=== PATIENT | female | born 2000 | race Caucasian/White ===

== ENCOUNTER 2023-10-08 12:55 | Inpatient (IN) | payer OTHER, SELFPAY ==
[2023-10-08] VITALS (18 sets, daily range): BP systolic 88–124; BP diastolic 49–87; PULSE 58–90; RESP 14–20; TEMP 36.1–36.9; O2SAT 66–100; BMI 29.6
[2023-10-08] MEDS: Lactated Ringers 1,000 ML 999 ML IV (13:12)
--- NOTE | 2023-10-08 13:16 | PCM.HP.OB ---
HPI - General General Date of Admission: 10/08/23 Date of Service: 10/08/23 Chief Complaint: Bleeding and contractions. HPI Narrative YULISSA FABIAN, is a 23 M who presents for contractions all night. This am had a gush of fluid and blood. Presents with significant vaginal bleeding. Cervix 1 cm. Planning primary due to hx of 3 degree laceration. Suspect abruption Maternal Data Information Final SHAY: 10/24/23 Gestational age: 37+5 PFSH PFSH Allergy/AdvReac Type Severity Reaction Status Date / Time amoxicillin [From Augmentin] Allergy Mild Diarrhea Verified 10/08/23 13:26 clavulanic acid Allergy Mild Diarrhea Verified 10/08/23 13:26 [From Augmentin] History 2 Elective abortions Hx Para 1 Spontaneous abortions Hx # Term Pregnancies Ectopic pregnancies Hx # Pregnancies Multiple births # of living children ROS Constitutional Constitutional: Denies fatigue, fever(s) or malaise Eyes Eyes: Denies change in vision ENT HEENT: Denies dizziness or headache(s) Cardiovascular Cardiovascular: Denies chest pain, dyspnea or lightheadedness Respiratory/Chest Respiratory/Chest: Denies cough or dyspnea Gastrointestinal Gastrointestinal: Denies change in bowel habits Genitourinary Genitourinary: Denies burning urination or genital lesions Integumentary Integumentary: Denies rash Neurologic Neurologic: Denies confusion, dizziness, headache(s), numbness or weakness Physical Exam Const alert and oriented x3 General Appearance: cooperative and comfortable HEENT normocephalic Head and Scalp: atraumatic Eyes PERRL and EOMs intact bilaterally Neck full ROM Resp normal respiratory effort GI Inspection: gravid Extremity normal to inspection General Extremity: Negative for edema Skin no rashes or lesions noted Neuro moves all extremities and no focal motor deficits Psych mental status grossly normal Labs Labs Labs: Blood Type Pending Antibody Screen Pending Hct 44.7 % (37-47) Hgb 14.2 g/dL (12.0-15.0) Syphilis Total Ab Pending Assessment & Plan (1) with third trimester bleeding, antepartum: PLAN: Suspect placental abruption (2) 37 or more weeks gestation of :
[2023-10-08] MEDS: Acetaminophen 500 MG Tablet 1000 MG PO ×2 (13:20→19:14)
[2023-10-08] MEDS: Sodium Citrate/Citric Acid 30 ML UDC PO (13:20)
[2023-10-08] MEDS: Cefazolin 2 GM in 0.9% Normal Saline (100mL Bag) 100 ML IV (13:28)
[2023-10-08 13:31] LABS: Absolute Lymphocyte Count 1.12 X10^3/uL (0.83-4.51); Absolute Neutrophil Count 5.2 X10^3/uL (2.0-7.7); Basophil# 0.02 X10^3/uL; Basophil% 0.3 % (0-1); Eosinophil# 0.03 X10^3/uL; Eosinophils% 0.4 % (0-5); Hematocrit 44.7 % (37-47); Hemoglobin 14.2 g/dL (12.0-15.0); Lymphocyte # 1.12 X10^3/ul (0.83-4.51); Lymphocyte % 16.5 % (19-41); Mean Corp Hgb Conc 31.8 g/dL (32-36); Mean Corpuscular Hgb 29.6 pg (27.0-32.0); Mean Corpuscular Volume 93.3 fL (81-99); Mean Platelet Vol. 10.9 fl (6.2-12.0); Monocyte# 0.42 X10^3/uL; Monocyte% 6.2 % (0-10); NRBC Flagged by Analyzer 0 % (0-5); Neutrophil # 5.15 X10^3/uL (2.7-7.7); Platelet Count 187 K/mm3 (150-450); RBC Distribution Width CV 13.2 % (11.6-14.6); RBC Distribution Width SD 44.9 fl (35.1-43.9); Red Blood Count 4.79 M/mm3 (4.2-5.4); White Blood Count 6.8 K/mm3 (4.4-11.0)
[2023-10-08] MEDS: Ondansetron 4 MG/2 ML Vial IV (13:44)
--- NOTE | 2023-10-08 13:50 | PLAC_PTH ---
PATIENT: YULISSA FABIAN LOC: [facility] U#:[id number] AGE/SX: 23/F ROOM: WP007 RE10/08/[address]: Dr. Mariah Daily MD : 2000 BED: 1 DIS: 10/10/2023 SPEC #: [id number] RECD: 10/08/23 15:27 STATUS: SHANNA REQ #: [id number] ANDER: 10/08/23 13:[address]: Anju Euceda DEPT: SURGICAL PATHOLOGY RECD BY: Sherlyn Jaramillo ENTERED: 10/09/23 07:55 SP TYPE: PLACENTA OTHR DR: Dr. Mariah Daily MD No Primary Care Phys Tissues: A - Placenta, NOS B - Fallopian tube Procedures: Surgery Specimen Level II Surgery Specimen Level V Comments: @ Ordering doctor for SUII edited from to @ by ELIAZAR at 10/13/23 1525 @ Ordering doctor for SUV edited from to @ by ELIAZAR at 10/13/23 1525 @ Submitting doctor edited from to @ by ELIAZAR at 10/13/23 1525 HEADER OPERATION: section and tubal ligation PRE-OP DIAGNOSIS: Suspected abruption and sterilization TISSUE SUBMITTED: A. Placenta, B. Fallopian tubes (left tube has suture) MICROSCOPIC DIAGNOSIS A. Placenta: Placental disc - third trimester placenta (475 gm). Membranes - no pathologic diagnosis. Umbilical cord - three blood vessels and no pathologic diagnosis. B. Bilateral fallopian tubes, salpingectomy: Bilateral fallopian tubes, no pathologic diagnosis. ARSEN: 10/13/23 MICROSCOPIC DESCRIPTION Slides are reviewed. GROSS DESCRIPTION A. SPECIMEN: PLACENTA / CLINICAL INFORMATION: A. Weight: 2.85 kg B. Gestational Age: 37 weeks C. Sex: Female PLACENTAL WEIGHT (POST FIXATION): 475 gm PLACENTAL DIMENSIONS: 17.0 x 16.0 x 3.0 cm PLACENTAL SHAPE: Usual ovoid PLACENTAL WEIGHT FOR GESTATIONAL AGE: Within 10-99th percentile MEMBRANES - Present A. Insertion: Marginal B. Site of rupture from edge: 7.0 cm from edge of placental disc C. Color of membrane: Worthy-butts D. Abnormalities: None UMBILICAL CORD - Present A. Color: Worthy-butts B. Insertion: Central C. Length: 24.0 cm D. Diameter: 1.4 cm E. Number of vessels: Three F. Abnormalities: None PLACENTAL DISC - Present A. Color of surface: Worthy-butts B. surface abnormalities: None C. Maternal cotyledons: Intact with minimal tears D. Attached retro placental clot: No clot E. Cut surface: Dark red and spongy F. Lesions: None G. Separate clot: Multiple blood clots are weighing 49 gm and measuring in aggregate 8.0 x 8.0 x 4.5cm. SECTIONS SUBMITTED: 1. Membrane roll 2. Cord, maternal end 3. Cord, end 4. Placental disc, and maternal surfaces 5. Placental disc, and maternal surfaces 6. Placental disc, and maternal surfaces B. Received in fixative is one container labeled with the patient's name and designated bilateral fallopian tubes, left tube has suture. The specimen consists of bilateral fallopian tubes including fimbrial ends. The right fallopian tube measuring 5.5 cm in length and 0.6 cm in diameter. The left fallopian tube measures 5.0cm in length and 0.6cm in diameter. Sections reveal unremarkable cut surfaces. Automation Design Engineer sections are submitted in two cassettes. 1- right fallopian tube 2 - left fallopian tube / SJ: 10/10/23 TC:5 CPT: 05280 x2, 15295
[2023-10-08] MEDS: TRANEXAMIC ACID 1,000 MG in 0.9% Normal Saline (100mL Bag) 100 ML 440 MG IV (14:07)
[2023-10-08 14:09] LABS: Fibrinogen 586 mg/dl (203-444); Partial Thromboplast Time 29.8 Seconds (24.1-36.2)
--- NOTE | 2023-10-08 14:35 | EX.PCM.OBRPT ---
Assessment & Plan (1) with third trimester bleeding, antepartum: (2) 37 or more weeks gestation of : (3) Placental abruption affecting delivery: (4) Request for sterilization: Maternal Data Information Final SHAY: 10/24/23 Gestational age: 37+5 Details Operative Information Date of Procedure: 10/08/23 Pre-Operative Diagnosis: Acute uterine bleeding Term Hx of third degree laceration Post-Operative Diagnosis: partial placental abruption Indications for : Desires elective sterilization and Suspected Abruptio Placenta Indications Narrative: Previous 3 degree laceration. Desires primary c/s with sterilization Classification: FRANTZ Procedure Type: bilateral salpingectomy party plan sales director #1: Jillian Leal Type of Anesthesia: Spinal Anesthesiologist: Maria Alejandra Clark Antibiotic Given: Ancef 2 grams IV x1 Drain: Mera to straight drain Estimated Blood Loss: 550cc Fluids Replaced: 1000cc Procedure Start Time: 13:47 Procedure Stop Time: 14:30 Time of Delivery: 13:50 Findings Description of Procedure: Patient taken to the OR where anesthesia was performed. She was placed in a dorsal supine position with a leftward tilt. A Mera was already in place. SCDs were placed on her lower extremities. She was prepped and draped in a normal sterile fashion. A Pfannenstiel incision was made with the scalpel and carried down to the underlying fascia. The fascia was extended laterally with scissors. The fascia was dissected off the muscles. The muscles were divided in the midline. The peritoneum was entered bluntly. A bladder blade was placed. A bladder flap was created. The uterus was was incised in a low transverse fashion and extended bluntly. The head was easily delivered through the incision followed the rest of the body. The cord was clamped and cut. The handed to the waiting staff. The placenta was delivered with gentle traction and uterine massage. There was a large clot in the lower uterine area. The placenta was intact but appeared to have an area of abruption on the lateral aspect. The uterus was exteriorized and cleared of all clot and debris. The incision was repaired with 1-0 Vicryl in a running locked fashion x 2. A third suture was used for hemostasis. The uterus was returned to the abdomen. The gutters cleared of all clot and debris. The peritoneum was closed with Monocryl. The fascia was closed with 0-Vicryl in a running fashion. The subcutaneous tissue was reapproximated with 3-0 Vicryl. The skin was closed with 4-0 Vicryl. All sponge lap and needle counts were correct. Presentation: Positive for Vertex Amniotic Membrane Rupture Type: Spontaneous Time of Membrane Ruptured: 1350 Amniotic Fluid Description: Clear Placental Delivery Description: Spontaneous and Expressed Placenta Disposition: [facility] Percentage of Placenta Abruption: 10 Specimen(s) Sent to Pathology: placenta Cord Vessel Description: 3 Vessels Cord Entanglement: None Infant A Gender: Female (1 minute): 8 (5 minute): 9 Delayed Cord Clamping: Yes
[2023-10-08] MEDS: Oxytocin 15 Units/NS 250ml 15 UNITS/250 ML IV.SOLN 83 UNITS IV (14:50)
[2023-10-08 15:05] LABS: Syphilis Antibodies Non-reactive
[2023-10-08] MEDS: Ketorolac 30 MG/ML Syringe IV ×2 (15:30→21:08)
[2023-10-08] MEDS: 0.9% Saline Lock 10 ML Syringe IV (21:08)
[2023-10-09] MEDS: Acetaminophen 500 MG Tablet 1000 MG PO ×4 (01:45→19:44)
[2023-10-09] MEDS: 0.9% Saline Lock 10 ML Syringe IV ×3 (03:59→09:43)
[2023-10-09] MEDS: Ketorolac 30 MG/ML Syringe IV ×2 (03:59→09:35)
[2023-10-09 04:14] VITALS: BP 87/55; BP 89/46; PULSE 62; RESP 17; TEMP 36.4; O2SAT 97
[2023-10-09 06:24] LABS: Hematocrit 31.3 % (37-47); Hemoglobin 10.1 g/dL (12.0-15.0); Mean Corp Hgb Conc 32.3 g/dL (32-36); Mean Corpuscular Hgb 29.7 pg (27.0-32.0); Mean Corpuscular Volume 92.1 fL (81-99); Mean Platelet Vol. 10.8 fl (6.2-12.0); Platelet Count 154 K/mm3 (150-450); RBC Distribution Width CV 13.1 % (11.6-14.6); RBC Distribution Width SD 43.6 fl (35.1-43.9); White Blood Count 11.1 K/mm3 (4.4-11.0)
--- NOTE | 2023-10-09 07:05 | PN.OBGYN_ITS ---
Subjective Subjective Fels good. Up moving without diffiuculty. Voiding well. Breast feeding Objective Data Objective Data Vital Signs: Vital Signs Temp Pulse Resp BP Pulse Ox O2 Del Method 97.5 F L 62 17 87/55 L 97 Room Air 10/09/23 04:14 10/09/23 04:14 10/09/23 04:14 10/09/23 04:14 10/09/23 04:14 10/09/23 04:14 Oxygen Delivery Method Room Air Weight: 73.482 kg Body Mass Index (BMI) 29.6 Intake & Output: Intake and Output for Last 24 Hours 10/07/23 10/08/23 10/09/23 23:59 23:59 23:59 Intake Total 1470 / 1470 Output Total 1150 / 1150 650 / 650 Balance 320 / 320 -650 / -650 Lab / Micro Data 10/09/23 06:03 Labs: Laboratory Results - last 24 hr 10/08/23 13:15: WBC 6.8, RBC 4.79, Hgb 14.2, Hct 44.7, MCV 93.3, MCH 29.6, MCHC 31.8 L, RDW Std Deviation 44.9 H, RDW Coeff of Marcos 13.2, Plt Count 187, MPV 10.9, Immature Gran % (Auto) 0.600, Neut % (Auto) 76.0 H, Lymph % (Auto) 16.5 L, [place] % (Auto) 6.2, Eos % (Auto) 0.4, Baso % (Auto) 0.3, Absolute Neuts (auto) 5.2, Absolute Lymphs (auto) 1.12, Nucleated RBC % 0, APTT 29.8, Fibrinogen 586 H , Syphilis Total Ab Non-reactive, Blood Type O POSITIVE, Antibody Screen NEGATIVE 10/09/23 06:03: WBC 11.1 H, RBC 3.40 L, Hgb 10.1 L, Hct 31.3 L, MCV 92.1, MCH 29.7, MCHC 32.3, RDW Std Deviation 43.6, RDW Coeff of Marcos 13.1, Plt Count 154, MPV 10.8 Physical Exam Const alert General Appearance: cooperative HEENT normocephalic and head/scalp atraumatic Eyes PERRL and EOMs intact bilaterally Resp normal respiratory effort GI soft to palpation and non-tender GI Narrative: soft, moderate distention, fundus firm, appropriately tender. Abdominal bandage clean dry and intact Neuro oriented x3 and CN's II-XII intact bilaterally Assessment & Plan (1) Status post section routine follow-up: (2) Placental abruption affecting delivery: (3) Request for sterilization:
[2023-10-09 08:51] VITALS: BP 93/52; PULSE 66; RESP 16; TEMP 36.9; O2SAT 98
[2023-10-09 09:19] LABS: Pathology Specimen OB SEE PATHOLOGY REPORT
[2023-10-09] MEDS: Acyclovir 200 MG Capsule 400 MG PO ×3 (09:35→21:39)
[2023-10-09] MEDS: Senna/Docusate Sodium 1 Tablet PO (09:36)
--- NOTE | 2023-10-09 11:13 | CASEMGMT ---
Social Work Assessment Labor and Delivery Unit Patient Address: [place] [address] Phone number: [phone] Date of Referral: 10/08/23 Time of Referral:? 1544 Referred By: Cruz Artis Date of Intervention: ??10/09/23 Time of Intervention: 0945 Reason for Referral:? maternal history of anxiety and depression Sw completed chart review and acknowledges social work consult due to maternal mental health history. Sw presented to bedside and introduced self to mother of baby (DAIN Bond) and explained sw role during hospitalization. Sw completed psychosocial assessment and asked MOB to complete [place] Depression Scale. History obtained from: medical records, MOB Household composition: Currently residing in the home is HOMA FRANKS, their 2 year old son, Buddy and now baby. MOB states that she does not have any concerns with their current housing. MOB states that they just bought a new home and will be moving in the next month. Patient's parent/guardian status:? ?MOB states that she and HOMA have been together since high school. MOB states that they have been together for 8 years and denies domestic violence or intimate partner violence. Medical History: ?GOLDEN is 23 year old female who is 2, para 1- now 2 following labor and delivery. GOLDEN received routine care during with [facility]. GOLDEN presented to hospital with a placental abruption and delivered baby via . Baby was born on 10/08/23 at 37 weeks gestation. Baby girl, named Kristi was born weighing 6lb 5oz and her apgars were 8 and 9 at one and five minutes of life respectfully. Baby will be followed by Dr. Dalton at [facility]. MOB states that she is breast feeding, baby has a tongue/ lip tie and feeds are not going the greatest in MOB's opinion. Educational Status:? Both parents graduated from high school. No concerns with reading, learning or comprehension. Financial Status: HOMA is gainfully employed outside of the home at [employer] on the [employer]. MOB states that HOMA is able to take 2.5 weeks off of work, and longer if MOB needs it. Supplies:?? MOB states that they have obtained supplies for baby, including: car seat, safe sleep space, clothes, diapers and wipes. MOB states that she is still in need of getting a breast pump. Childcare/Caregiver(s):? GOLDNE will be the primary caregiver to baby along with HOMA when he is not at work. Transportation:??Both parents have their drivers license and reliable means of transportation. NO barriers. Programs/Agencies Involved: ???GOLDEN states that she is not connected to any community resources that assist her financially at this time. Children Services/Legal Issues:??? No history of involvement, no issues or concerns warranting referral to be made at this time. Behavioral Health Issues: ??Mental Health History:?GOLDEN states that HOMA does not have any mental health diagnoses. GOLDEN reports that she has anxiety, depression and did experience depression following her last delivery. MOB states that when she had depression she did not want to leave the house. MOB states that she did not want anyone else to care for the baby, and she wanted to hold the baby all the time. MOB states that there came a time where she did not want to leave to even go to the grocery store, and HOMA told her that she needed help. GOLDEN states that at that time she talked to her OBGYN and was put on a psychotropic medication to help with her depression, but she cannot remember the name of it. GOLDEN states that she also took zoloft temporarily but it made her feel dizzy. GOLDEN completed an [place] Depression Scale, her score was a 12. Sw provided education and support. ?? Substance Use History: GOLDEN denies substance use prior to and during . ?? Family History: GOLDEN denies family history of addiction/ substance use and significant mental health history. ? Drug Screens: ??No drug screens observed during chart review. Family/Social Stressors:? GOLDEN states that she is worried about her mental health following this delivery. GOLDEN states that she is also nervous about bringing home baby with her 2 year old son. GOLDEN reports that they recently bought a new house and moving is going to also be overwhelming. Lots of empathetic listening and support provided. Support Systems: GOLDEN states that HOMA and her parents are her biggest supports at this time . Depression/Shaken Baby/Safe Sleeping:? Sw talked to GOLDEN at length regarding baby blue and depression and anxiety. GOLDEN stated that HOMA would be able to recognize if she were struggling and would know how to help her. MOB stated that she is not always honest, and is shameful/ feels guilty when she struggles with her mental health. Sw encouraged MOB to have a conversation with FOB to let him know how he can be helpful. Sw educated MOB on shaken baby prevention and ABCs of safe sleep. MOB expressed understanding. ASSESSMENT:? MOB and baby are admitted following labor and delivery. MOB made and maintained eye contact throughout completion of psychosocial assessment. MOB with mental health history positive for anxiety and depression, and did experience post following her last / delivery. MOB has obtained everything except a breast pump and has natural supports in place. MOB completed [place] Depression scale and her score is a 12. MOB was very open and talkative with sw, receptive to support and resources provided. PLAN:? MOB and baby to be discharged when medically ready. ?No other services requested or indicated. Quan Garza, CARE AID, UTILITY TENDER CARDING
[2023-10-09 14:22] VITALS: BP 99/66; PULSE 66; RESP 18; TEMP 36.7; O2SAT 97
[2023-10-09] MEDS: Ibuprofen 600 MG Tablet PO ×2 (16:05→21:39)
--- NOTE | 2023-10-09 16:47 | MDS.RN ---
abd binder on pt.
[2023-10-09] MEDS: SimETHICONE 80 MG Chewable Tablet PO ×2 (18:05→21:38)
[2023-10-09 19:36] VITALS: BP 100/56; PULSE 87; RESP 16; TEMP 36.9; O2SAT 98
[2023-10-10] MEDS: Acetaminophen 500 MG Tablet 1000 MG PO ×2 (01:25→08:40)
[2023-10-10 01:28] VITALS: BP 103/59; PULSE 60; RESP 18; TEMP 37; O2SAT 97
[2023-10-10] MEDS: Ibuprofen 600 MG Tablet PO ×2 (04:00→09:57)
[2023-10-10] MEDS: Acyclovir 200 MG Capsule 400 MG PO (06:03)
--- NOTE | 2023-10-10 08:30 | PCM.PROGNOTE ---
Subjective Subjective patient seen at bedside, doing well. Patient reports good pain control. lochia mild. Pt reports Feels she needs medication for PP depression. Objective Data Objective Data Vital Signs: Vital Signs Temp Pulse Resp BP Pulse Ox O2 Del Method 98.6 F 60 18 103/59 L 97 Room Air 10/10/23 01:28 10/10/23 01:28 10/10/23 01:28 10/10/23 01:28 10/10/23 01:28 10/10/23 01:28 Oxygen Delivery Method Room Air Weight: 73.482 kg Body Mass Index (BMI) 29.6 Intake & Output: Intake and Output for Last 24 Hours 10/08/23 10/09/23 10/10/23 23:59 23:59 23:59 Intake Total 1470 / 1470 Output Total 1150 / 1150 650 / 650 Balance 320 / 320 -650 / -650 Lab / Micro Data 10/09/23 06:03 Physical Exam Narrative Abd: dressing dry and intact. Fundus firm. Const alert and oriented x3 General Appearance: cooperative HEENT normocephalic Neck General: normal visual inspection GI soft to palpation and non-distended GI Narrative: Fundus firm Extremity normal to inspection and no calf tenderness Skin no rashes or lesions noted Neuro oriented x3 and CN's II-XII intact bilaterally Psych mental status grossly normal Assessment & Plan Assessment/Plan (1) Status post section routine follow-up: (2) Request for sterilization: (3) Placental abruption affecting delivery: (4) 37 or more weeks gestation of : (5) with third trimester bleeding, antepartum: (6) Depression: PLAN: Plan POD# 2 , Doing well Routine care pain mgmt monitor VS ambulation dc home start prozac
--- NOTE | 2023-10-10 08:34 | PCM.DC ---
Discharge Instructions Diet Discharge Diet: No restrictions Activity May resume sexual activity in: 6-8 weeks Lifting Restrictions: 25 Dressing / Incision Call your doctor if your incision/area has: Continuous Slow Oozing, Sudden Increased Bleeding, Increased Pain/ Swelling, Increased Redness, Foul Smelling Discharge and Swelling at the incision site Call your doctor if you observe: Fever of 101 or Higher, Inability to urinate, Using more than 1 pad per hour and Uncontrolled pain Additional Dressing/Incision Instructions:: remove dressing at 7 days post op- if it becomes saturated prior to that time you may remove it. Let soap and water run over incision sites and dab dry. keep incision clean and dry. Follow Up Care Please Follow Up With: Anju Wright MD When: 1-2 weeks post of incision check and again at 6 weeks post . [phone] Test Results: Test results from this visit will be discussed in further detail at your follow-up appointment, if applicable. Discharge Plan Admission Admit Date/Time: 10/08/23 12:55 Attending Provider: Mariah Daily Primary Care Provider: Care Physician,Elvia Primary Discharge Orders/Prescriptions Prescriptions: New acetaminophen 500 mg Tablet 1,000 mg PO Q6H Qty: 0 0RF acyclovir 200 mg Capsule 400 mg PO TID Qty: 0 0RF ibuprofen 600 mg Tablet 600 mg PO Q6H Qty: 0 0RF fluoxetine 20 mg Capsule 20 mg PO DAILY Qty: 0 0RF Referrals / Follow Up: Care Physician,No Primary [Primary Care Provider] - Disposition Disposition (needs filled in before D/C Order can be placed): Home, Self Care
[2023-10-10 08:35] VITALS: BP 104/62; PULSE 76; RESP 16; TEMP 37; O2SAT 97
--- NOTE | 2023-10-10 08:35 | PCM.DC.BLA ---
Discharge Summary Date of Admission: 10/08/23 Date of Discharge: 10/10/23 Summary: And admitted to [facility] on 10/08/2023 with vaginal bleeding at 37+ weeks gestation found to have placental abruption underwent a primary section and bilateral salpingectomy performed by Dr. Mariah Daily. She had an uncomplicated postoperative course. Was discharged home on postoperative day 2 in stable condition. Meaningful Use Info Meaningful Use Diagnoses (Choose all that apply): None applicable Discharge Plan Admission Admit Date/Time: 10/08/23 12:55 Attending Provider: Mariah Daily Primary Care Provider: Care Physician,Elvia Primary Discharge Orders/Prescriptions Prescriptions: New acetaminophen 500 mg Tablet 1,000 mg PO Q6H Qty: 0 0RF acyclovir 200 mg Capsule 400 mg PO TID Qty: 0 0RF ibuprofen 600 mg Tablet 600 mg PO Q6H Qty: 0 0RF fluoxetine 20 mg Capsule 20 mg PO DAILY Qty: 0 0RF Referrals / Follow Up: Care Physician,No Primary [Primary Care Provider] - Disposition Disposition (needs filled in before D/C Order can be placed): Home, Self Care
--- NOTE | 2023-10-10 08:40 | DCINST_ITS ---
Discharge Instructions Diet Discharge Diet: No restrictions Activity May resume sexual activity in: 6-8 weeks Dressing / Incision Call your doctor if your incision/area has: Continuous Slow Oozing, Sudden Increased Bleeding, Increased Pain/ Swelling, Increased Redness, Foul Smelling Discharge and Swelling at the incision site Call your doctor if you observe: Fever of 101 or Higher, Inability to urinate, Using more than 1 pad per hour and Uncontrolled pain Additional Dressing/Incision Instructions:: remove dressing at 7 days post op- if it becomes saturated prior to that time you may remove it. Let soap and water run over incision sites and dab dry. keep incision clean and dry. Follow Up Care Please Follow Up With: Anju Wright MD Test Results: Test results from this visit will be discussed in further detail at your follow- up appointment, if applicable. Discharge Plan Admission Admit Date/Time: 10/08/23 12:55 Attending Provider: Mariah Daily Primary Care Provider: Care Physician,Elvia Primary Discharge Orders/Prescriptions Prescriptions: New acetaminophen 500 mg Tablet 1,000 mg PO Q6H Qty: 0 0RF acyclovir 200 mg Capsule 400 mg PO TID Qty: 0 0RF ibuprofen 600 mg Tablet 600 mg PO Q6H Qty: 0 0RF fluoxetine 20 mg Capsule 20 mg PO DAILY Qty: 0 0RF Referrals / Follow Up: Care Physician,No Primary [Primary Care Provider] - Disposition Disposition (needs filled in before D/C Order can be placed): Home, Self Care
[2023-10-10] MEDS: FLUoxetine 20 MG Capsule PO (09:57)
[2023-10-10 12:40] VITALS: BP 112/75; PULSE 94; RESP 16; TEMP 36.7; O2SAT 97
[2023-10-13 15:50] LABS: Pathology Specimen OB SEE PATHOLOGY REPORT
--- NOTE | 2023-10-14 15:35 | NURSING ---
10/14/23 1535: Follow up phone call performed. Pt. reports doing well. Lochia minimal to spotting. Does have a rash on belly where they cleaned for the . Pt. reports her OBGYN is aware and she has an appt to have it checked. This RN encouraged pt. to call OBGYN is rash changes or worsens before appt. is going well, and pt. denies questions or concerns at this time.
== END 2023-10-10 13:00 | disposition home or self-care (01) | DRG 785 ==
PROVIDERS: Admitting Provider Obstetrics & Gynecology; Visit Provider Obstetrics & Gynecology
DX: O45.93 Premature separation of placenta, unspecified, third trimester (principal); F32.A Depression, unspecified; O99.344 Other mental disorders complicating childbirth; Z30.2 Encounter for sterilization; Z37.0 Single live birth; Z3A.37 37 weeks gestation of pregnancy; O26.23 Pregnancy care for patient with recurrent pregnancy loss, third trimester
CPT/HCPCS: 59025; 59050; 85025; 85027; 85384; 85730; 86780; 86850; 86900; 86901; 88302; 88307; 99221; J7120; A4216; G0378; J2405